=== PATIENT | female | born 1955 | race Caucasian/White ===

== ENCOUNTER 2016-04-28 12:36 | Outpatient (CLI) ==
--- NOTE | 2016-04-28 14:54 | DEXA ---
EXAM: Bone Densitometry DEXA HISTORY: Postmenopausal COMPARISON: None FINDINGS: DEXA scan of the lumbar spine was performed. Quality of the study is good. Bone mineral density is 1.221 grams per square centimeter. T-score is 0.3. Z-score is 1.0. DEXA scan right hip was performed. Quality of the study is good. Bone mineral density is 0.996 gra ms per square centimeter. T-score is negative 0.1. Z-score is 0.4. Bone mineral density of the fem oral neck is 0.921 with a T score of negative 0.8 and a Z score of 0.0. IMPRESSION: 1. Lumbar spine: Normal bone marrow density. 2. Right hip: Normal bone marrow density 3. Right femoral neck: Normal bone marrow density 4. 10 year risk for major osteoporotic fracture is 13.4% and for hip fracture is 0.3%. Reference Values according to World Health Organization criteria: T score greater than -1 is normal T score -1 to -2.5 is osteopenia T score less than -2.5 is osteoporosis.
--- NOTE | 2016-05-12 09:37 | MAMMO ---
EXAM: Digital screening mammogram HISTORY: Screening COMPARISON: 02/27/2015 FINDINGS: Digital MLO and CC views of the right and left breast were performed. There are scatter ed fibroglandular densities. There is no evidence for mass, asymmetry, distortion, or suspicious ca lcifications in either breast. IMPRESSION: 1. No evidence of malignancy in the right or left breast. 2. Annual screening mammogram is recommended in one year. BIRADS category 1, negative examination
== END 2016-04-28 12:37 | disposition home or self-care (01) ==
LOC: RAD 12:36
PROVIDERS: ATTEND Family Medicine
DX: Z12.31 Encounter for screening mammogram for malignant neoplasm of breast (principal)

== ENCOUNTER 2017-07-10 08:00 | Outpatient (CLI) ==
--- NOTE | 2017-07-11 09:30 | MAMMO ---
EXAM: Bilateral digital screening mammogram (2-D and 3-D) Comparison: Bilateral mammogram 04/28/2016 Findings: MLO and CC views of bilateral breasts demonstrate scattered fibroglandular breast parenchy ma. CAD was reviewed by the radiologist. Tomosynthesis was performed. Stable benign bilateral lymph nodes. There are no developing masses, no suspicious microcalcifications and no architectural disto rtions Impression: Benign stable mammogram. Recommend followup routine screening mammography in 1 year. BIRADS 2
== END 2017-07-10 08:01 | disposition home or self-care (01) ==
LOC: RAD 08:00
PROVIDERS: ATTEND Family Medicine
DX: Z12.31 Encounter for screening mammogram for malignant neoplasm of breast (principal)
CPT/HCPCS: 77067